=== PATIENT | male | born 1955 | race Two or more races ===

== ENCOUNTER → 2017-06-15 | Outpatient (CLI) | payer BC ==
[~2017-06-15] MED LIST: ACIPHEX20 MG PO; ALBUTEROL17 GM INH; ASPIRIN ENTERI325 M1 PO; AUGMENTIN875 M1 PO; BENTYL20 MG PO; BENZONATATE PO; CIPRO PO; DARVOCET-N 1001 TAB PO; DISCONTINUED MED; FAMOTIDINE PO; IMMODIUM1 MG/5 ML PO; LORTAB 5/500 TA1 TA1 PO; NEXIUM PO; OMEPRAZOLE40 MG PO; PAIN MED; PREDNISONE PO; PREVACID PO; PRILOSEC PO; PRILOSEC40 MG; PROTONIX PO; ROBITUSSIN A-C10 ML PO; TRAMADOL; TYLENOL #3 PO
--- NOTE | ~2017-06-15 | CT2 ---
[facility] A Service of [facility] & [facility] RADIOLOGY TEXT RESULTS PATIENT: SEJAL SARABIA LOCATION: CCAT : 57 UNIT #: [id number] AGE: [address]: Shimon Go MD SEX: M ORDER DR: [id number] [facility] [address] [place], [place] [address] [id number] O MR#: [id number] Acc #: [id number] NAME: SEJAL SARABIA : 1955 SEX: M STUDY DATE/TIME: 06/15/2017 14:55 UNIT: [facility] ROOM: STUDY DESCRIPTION: CT Abd and Pelv W Cont Attending Physician: Shimon Go M.D. Referring Physician: Shimon Go M.D. Ordering Physician: Shimon Go M.D. Primary Care Physician: Ulices Olmos M.D. MEDICAL IMAGING REPORT This report is preliminary unless electronic signature is present EXAM CT of abdomen and pelvis with contrast. INDICATIONS Left lower quadrant pain for 2 weeks, with a history of diverticulitis. COMPARISON 12/25/2014 TECHNIQUE The patient was given 100 mL of Isovue-370, and axial 5 mm images were obtained through the abdomen and pelvis. Oral contrast was also administered. Sagittal and coronal reconstructions were generated. This CT exam was performed with one or more of the following radiation dose reduction techniques: automatic exposure control, adjustment of mA and/or kV according to patient size, and iterative reconstruction. FINDINGS The lung bases are clear. The liver, gallbladder, spleen, pancreas, adrenal glands, and kidneys are normal in appearance. The aorta is normal in size, and there is no adenopathy. There is some inflammatory change associated with the upper sigmoid colon. There are a few diverticula in this region, and this is consistent with either diverticulitis, or perhaps focal colitis. The bladder and prostate gland are normal. The bones are unremarkable. IMPRESSION 1. There is a small 3-4 cm area of inflammatory change around the upper sigmoid colon, and I believe represents diverticulitis. This is the same area that showed similar inflammation back in 12/25/2014. There is no evidence of free air or abscess. Otherwise, the study is unremarkable. [facility] A Service of [facility] & [facility] RADIOLOGY TEXT RESULTS PATIENT: SEJAL SARABIA LOCATION: [facility] : 57 UNIT #: [id number] AGE: [address]: Shimon Go MD SEX: M ORDER DR: STAT * RESULT Dictated by... Gerardo Butterfield M.D. THIS IS AN ELECTRONICALLY VERIFIED REPORT Gerardo Butterfield M.D. at 06/15/2017 3:55 PM DIANE/ermelinda TD: 06/15/2017 15:30 JOB #: [id number] MEDICAL IMAGING REPORT Page 1 of 1 COPY
[2017-06-15 17:01] LABS: POC - CREATININE 0.99 mg/dL (0.64-1.27); POC - GFR >60.0 mL/min (>60)
== END | disposition home or self-care (01) ==
LOC: CCAT 13:26
PROVIDERS: Family Medicine
DX: R10.9 Unspecified abdominal pain (principal); K63.89 Other specified diseases of intestine
CPT/HCPCS: 74177; 82565; Q9967

== ENCOUNTER → 2017-06-17 | Outpatient (CLI) | payer BC ==
--- NOTE | ~2017-06-17 | US37 ---
[facility] A Service of [facility] RADIOLOGY TEXT RESULTS PATIENT: SEJAL SARABIA LOCATION: SNIV : 57 UNIT #: [id number] AGE: [address]: Ulices Olmos MD SEX: M ORDER DR: [id number] [place] [id number] O MR#: [id number] Acc #: [id number] NAME: SEJAL SARABIA : 1955 SEX: M STUDY DATE/TIME: 06/17/2017 13:03 UNIT: SNIV ROOM: STUDY DESCRIPTION: US Carotid W/Doppler Bilateral Attending Physician: Ulices Olmos M.D. Ordering Physician: Ulices Olmos M.D. Primary Care Physician: Ulices Olmos M.D. MEDICAL IMAGING REPORT This report is preliminary unless electronic signature is present. EXAM Carotid Doppler. INDICATIONS Health maintenance examination. TECHNIQUE Bilateral carotid ultrasound examination was performed using murray-scale, spectral Doppler and color-flow Doppler imaging. Carotid flow was assessed using standards based on NASCET methodology. FINDINGS Ultrasound examination of the carotid arteries shows some mild plaque involving the carotid bifurcations bilaterally. Doppler evaluation shows normal flow velocities and normal Doppler waveforms within the right vertebral arteries bilaterally. Peak systolic internal carotid artery flow velocities measure up to 75 cm/sec on the right and 86 cm/sec on the left. There is no evidence of significant carotid stenosis of the neck. IMPRESSION 1. Mild carotid disease. No Doppler ultrasound evidence of flow-limiting or clinically significant carotid stenosis. Dictated by... Dedra James M.D. THIS IS AN ELECTRONICALLY VERIFIED REPORT Dedra James M.D. at 06/18/2017 12:47 PM AFF/jt TD: 06/17/2017 21:12 JOB #: [id number] [facility] A Service of [facility] RADIOLOGY TEXT RESULTS PATIENT: SEJAL SARABIA LOCATION: SNIV : 57 UNIT #: [id number] AGE: [address]: Ulices Olmos MD SEX: M ORDER DR: MEDICAL IMAGING REPORT Page 1 of 1
== END | disposition home or self-care (01) ==
LOC: SNIV 12:52
DX: Z00.00 Encounter for general adult medical examination without abnormal findings (principal); I77.9 Disorder of arteries and arterioles, unspecified
CPT/HCPCS: 93880